=== PATIENT | male | born 1970 | race Caucasian/White ===

== ENCOUNTER 2016-10-26 14:31 | Emergency (ER) | payer OTHER ==
[~2016-10-26] VITALS: Ht 175.3 cm; Wt 98.0 kg
[~2016-10-26 14:31] MED LIST: THERA FLU
[2016-10-26 14:35] VITALS: BP 156/87; PULSE 94; RESP 16; TEMP 98.3; O2SAT 96
[2016-10-26] MEDS ORDERED: LISI40TA PO (14:47)
[2016-10-26] MEDS ORDERED: NIFE1TAB PO (14:47)
[2016-10-26] MEDS ORDERED: HYDR25TA5 PO (14:47)
[2016-10-26] MEDS ORDERED: FENO145T2 PO (14:47)
--- NOTE | 2016-10-26 14:58 | PD ---
HPI Chief Complaint: Pain: Acute or Chronic Time Seen by Provider: 14:55 Travel History International Travel<30 days: No Contact w/Intl Traveler<30days: No Traveled to known affect area: No History of Present Illness HPI 46-year-old male with a history of hypertension, hyperlipidemia and gout presents to the emergency department for evaluation of right heel pain for 3 days. Denies any injury or trauma to his heel. States that he feels as though he is having a flare up of gout. States he woke up in the morning 3 days ago with this pain in his right posterior heel. States has been constant for the past 3 days. Aggravated with light touch and movement. States he has been taking ibuprofen with minimal improvement of symptoms. States that in the past when he has had a gout flare up it has been in his right great toe, not dislocation. Denies any recent change in shoes or increased activity. No other complaints. PFSH Past Medical History Hx Anticoagulant Therapy: No Cardiovascular Problems: Yes (HTN) Diabetes: No Diminished Hearing: No Gout: Yes Hypertension: Yes Tetanus Vaccination: > 5 Years Influenza Vaccination: No Past Surgical History Surgical History: No Previous Surgery Social History Alcohol Use: Yes (Occ.) Tobacco Use: No Substance Use: No Allergies-Medications (Allergen,Severity, Reaction): Coded Allergies: No Known Allergies (Verified , 10/26/16) Reported Meds & Prescriptions Reported Meds & Active Scripts Active Reported Lisinopril 40 Mg Tab 40 Mg PO DAILY Nifedipine ER 24 HR (Nifedipine) 90 Mg Tab 90 Mg PO DAILY Hydrochlorothiazide 25 Mg Tab 25 Mg PO DAILY Fenofibrate 145 Mg Tab 145 Mg PO DAILY Review of Systems Except as stated in HPI: all other systems reviewed are Neg Physical Exam Narrative GENERAL: Morbidly obese pleasant male patient in no acute distress who is nontoxic appearing. SKIN: Warm and dry. HEAD: Normocephalic and atraumatic. EYES: No injection, drainage, or hyphema noted. PERRLA. EOMI. ENT: No nasal drainage noted. Oropharynx is clear. NECK: Supple and the trachea is midline. CARDIOVASCULAR: Regular rate and rhythm. RESPIRATORY: Breath sounds are equal bilaterally with no accessory muscle use, wheezing, rhonchi, or crackles. MUSCULOSKELETAL: Mild erythema and swelling to right posterior heel with tenderness to palpation. No fluctuance or warmth. No obvious deformities, cyanosis, or ecchymosis is present throughout the upper and lower extremities. Patient has full range of motion without any signs of neurovascular compromise. NEUROLOGICAL: Awake, alert, and oriented. Normal speech and gait. Cranial nerves are grossly intact. Data Data Last Documented VS Vital Signs Date Time Temp Pulse Resp B/P Pulse Ox O2 Delivery O2 Flow Rate FiO2 10/26/16 14:35 98.3 94 16 156/87 96 MDM Medical Decision Making Medical Screen Exam Complete: Yes Emergency Medical Condition: Yes Differential Diagnosis Heel spur versus gout versus arthritis Narrative Course 46-year-old male presents to the emergency department for evaluation of right heel pain for 3 days. No injury or trauma. Patient is afebrile, vital signs are stable. He has a history of gout and states he feels like this is a gout flareup although he has never had it in this location before. The location of his pain seems more likely that this is a calcaneal bursitis rather than gout. Discussed with my attending physician Dr. Murrieta also evaluated the patient is in agreement with my assessment. The patient states that steroids have worked well for his pain in the past and he would like to have a short course of this medication. I think this is reasonable. We'll place patient on steroids and pain medication. Instructed to immediately to return to the emergency department for any acute worsening of symptoms. Patient verbalizes understanding and agreement with treatment plan. Diagnosis Primary Impression: Pain of right heel Referrals: Primary Care Physician Patient Instructions: General Instructions Additional Instructions: Take medications as prescribed with food and a full glass of water. Do not take Lortab with alcohol or driving. Follow-up with your Primary Care Physician. Return to the ED for any acute worsening of symptoms. Med/Other Pt SpecificInfo: Prescription(s) given Scripts Prednisone 20 Mg Tab20 Mg PO BID 5 Days Ref 0 Prov:Isreal Murrieta MD 10/26/16 Hydrocodone-Acetaminophen (Lortab)5-325 Mg Tab1 Tab PO Q6H PRN (PAIN) #15 TAB Ref 0 Prov:Isreal Murrieta MD 10/26/16 Disposition: 01 DISCHARGE HOME Condition: Stable Estelita Goodson Oct 26, 2016 14:57
[2016-10-26] MEDS ORDERED: PRED20 PO (15:08)
[2016-10-26] MEDS ORDERED: HYDR-3533 PO (15:08)
== END 2016-10-26 15:20 | disposition home or self-care (01) ==
LOC: PHEFT 14:31
DX: M79.671 Pain in right foot (principal); I10 Essential (primary) hypertension; Z87.39 Personal history of other diseases of the musculoskeletal system and connective tissue; Z86.79 Personal history of other diseases of the circulatory system
CPT/HCPCS: 99283

== ENCOUNTER 2017-12-06 03:30 | Emergency (ER) | payer OTHER ==
[~2017-12-06] VITALS: Ht 172.7 cm; Wt 98.0 kg
[~2017-12-06 03:30] MED LIST changes: +FENO145T2 PO; +HYDR-3533 PO; +HYDR25TA5 PO; +LISI40TA PO; +NIFE1TAB PO; +PRED20 PO; -THERA FLU
[2017-12-06 03:37] VITALS: BP 162/79; PULSE 97; RESP 20; TEMP 98.4; O2SAT 97
[2017-12-06] MEDS ORDERED: KETOROLAC TROMETHAMINE 60 MG/2 ML (IM) VIAL IM ONE (05:30)
[2017-12-06] MEDS ORDERED: DEXAMETHASONE SOD PHOS 4 MG/ML VIAL IM ONE (05:30)
[2017-12-06] MEDS ORDERED: MEDR4PAK PO (05:31)
--- NOTE | 2017-12-06 05:31 | PD ---
HPI Chief Complaint: Pain: Acute or Chronic Time Seen by Provider: 05:24 Travel History International Travel<30 days: No Contact w/Intl Traveler<30days: No Traveled to known affect area: No History of Present Illness HPI 47-year-old male with history of gout presents emergency department for evaluation of a gout exacerbation. Patient states that happens about once a year. He is typically put on a Medrol Dosepak. Patient states yesterday he began having pain in his left foot around the MTP joint of the first toe. He states it was tolerable and an ache however over the course of the evening and tonight it has become constant, throbbing. It is moderate in severity. Denies any injury. He denies any fever or chills. He has no other symptoms to report. PFSH Past Medical History Hx Anticoagulant Therapy: No Cardiovascular Problems: Yes (HTN) Diabetes: No Diminished Hearing: No Gout: Yes Hypertension: Yes Medical other: Yes (GOUT) Immunizations Current: Yes Tetanus Vaccination: Unknown Influenza Vaccination: No Past Surgical History Surgical History: No Previous Surgery Social History Alcohol Use: Yes (Occ.) Tobacco Use: No Substance Use: No Allergies-Medications (Allergen,Severity, Reaction): Coded Allergies: No Known Allergies (Verified Adverse Reaction, Unknown, 12/06/17) Reported Meds & Prescriptions Reported Meds & Active Scripts Active Medrol Dosepak (Methylprednisolone) 4 Mg Dspk 4 Mg PO DIRECTED Per Pharmacist direction Reported Lisinopril 40 Mg Tab 40 Mg PO DAILY Nifedipine ER 24 HR (Nifedipine) 90 Mg Tab 90 Mg PO DAILY Hydrochlorothiazide 25 Mg Tab 25 Mg PO DAILY Fenofibrate 145 Mg Tab 145 Mg PO DAILY Review of Systems Except as stated in HPI: all other systems reviewed are Neg Physical Exam Narrative GENERAL: Well-nourished, well-developed male patient in no acute distress SKIN: Focused skin assessment warm/dry. Without significant erythema or edema HEAD: Normocephalic. EYES: No scleral icterus. No injection or drainage. NECK: Supple, trachea midline. No JVD or lymphadenopathy. CARDIOVASCULAR: Regular rate and rhythm without murmurs, gallops, or rubs. RESPIRATORY: Breath sounds equal bilaterally. No accessory muscle use. MUSCULOSKELETAL: No cyanosis, or edema. Tenderness elicited palpation over the left first MTP joint. No obvious deformity. Patient can flex and extend the toes. Cap refill within normal limits. Distal pulses are palpable. BACK: Nontender without obvious deformity. No CVA tenderness. Data Data Last Documented VS Vital Signs Date Time Temp Pulse Resp B/P (MAP) Pulse Ox O2 Delivery O2 Flow Rate FiO2 12/06/17 05:45 12/06/17 03:37 98.4 97 20 97 Room Air Orders Orders Dexamethasone Inj (Decadron Inj) (12/06/17 05:30) Ketorolac Inj (Toradol Inj) (12/06/17 05:30) Ed Discharge Order (12/06/17 05:27) MDM Medical Decision Making Medical Screen Exam Complete: Yes Emergency Medical Condition: Yes Medical Record Reviewed: Yes Differential Diagnosis Gout exacerbation versus osteoarthritis versus contusion versus sprain Narrative Course 47-year-old male presents emergency department for evaluation left foot pain, consistent with previous gout exacerbations. Patient appears without distress. Vital signs are stable. Foot is neurovascularly intact. Patient is treated for pain. He will be started on Medrol Dosepak. He is encouraged to follow-up with a primary care provider and return immediately with acute worsening symptoms. Diagnosis Primary Impression: Exacerbation of gout Referrals: Primary Care Physician Patient Instructions: General Instructions, Gout (ED) Departure Forms: Tests/Procedures, Work Release Enter return to work date: Dec 09, 2017 Additional Instructions: Elevate to reduce pain and swelling Follow-up with a primary care provider Return immediately with acute worsening symptoms Med/Other Pt SpecificInfo: Prescription(s) given Scripts Methylprednisolone Dosepak (Medrol Dosepak) 4 Mg Dspk 4 MG PO DIRECTED, #1 DSPK 0 Refills Per Pharmacist direction Prov: Candis Grande 12/06/17 Disposition: 01 DISCHARGE HOME Condition: Stable Candis Grande Dec 06, 2017 05:31
== END 2017-12-06 06:04 | disposition home or self-care (01) ==
LOC: NEPD 03:30
DX: M10.9 Gout, unspecified (principal); I10 Essential (primary) hypertension; Z79.899 Other long term (current) drug therapy
CPT/HCPCS: 96372; 99283; J1100; J1885